=== PATIENT | female | born 1970 | race Hispanic/Latino ===

== ENCOUNTER 2016-12-01 21:06 | Emergency (ER) | payer OTHER ==
[2016-12-01 21:10] VITALS: RESP 18; TEMP 99.8
--- NOTE | 2016-12-01 21:33 | ED PDOC ---
Arrival/HPI - General Chief Complaint: Upper Extremity Problem/Injury Time Seen by Provider: 12/01/16 21:19 Historian: Patient, Family (daughter) - History of Present Illness Narrative History of Present Illness (Text): 12/01/16 21:29 This 46 yo female presents to this ED c/o intermittent left shoulder pain x 2 weeks. She also noted left hip pain x 1 day. Patient denies trauma, weakness, paresthesias, sob, cp, dizziness, or abnormal gait. Time/Duration: Other (see hpi) Quality: Aching Context: Home Past Medical History - Provider Review Nursing Documentation Reviewed: Yes - Hematological/Oncological Hx Blood Disorders: Yes Hx Anemia: Yes - Musculoskeletal/Rheumatological Hx Musculoskeletal Disorders: Yes Hx Fractures: Yes (LEFT LEG) - Psychiatric Hx Substance Use: No - Anesthesia Hx Anesthesia: No Hx Anesthesia Reactions: No Hx Malignant Hyperthermia: No Family/Social History - Physician Review Nursing Documentation Reviewed: Yes Family/Social History: Other (non-contributory) Smoking Status: Never Smoked Hx Alcohol Use: No Hx Substance Use: No Allergies/Home Meds Allergies/Adverse Reactions: Allergies No Known Allergies Allergy (Verified 12/01/16 21:09) Home Medications: Home Meds Medication Instructions Recorded Confirmed Multivitamin [Multivitamins] 1 tab PO DAILY 12/01/16 12/01/16 Review of Systems - Review of Systems Constitutional: Normal. absent: Fatigue, Weight Change, Fevers Eyes: Normal ENT: Normal Respiratory: Normal. absent: SOB, Cough Cardiovascular: Normal. absent: Chest Pain, Palpitations Gastrointestinal: Normal. absent: Abdominal Pain, Nausea, Vomiting Genitourinary Female: Normal. absent: Dysuria, Frequency, Hematuria Musculoskeletal: Other (see hpi) Skin: Normal Neurological: Normal. absent: Headache, Dizziness, Focal Weakness, Gait Changes , Speech Changes, Facial Droop, Disequilibrium, Seizure Endocrine: Normal Hemo/Lymphatic: Normal Psychiatric: Normal Physical Exam Vital Signs Temp Pulse Resp BP Pulse Ox 12/01/16 23:58 84 18 122/80 98 12/01/16 21:09 99.8 F H 111 H 18 129/84 100 Temperature: Afebrile Blood Pressure: Normal Pulse: Regular Respiratory Rate: Normal Appearance: Positive for: Well-Appearing, Non-Toxic, Comfortable Pain Distress: None Mental Status: Positive for: Alert and Oriented X 3 - Systems Exam Head: Present: Atraumatic, Normocephalic Pupils: Present: PERRL Extroacular Muscles: Present: EOMI Conjunctiva: Present: Normal Mouth: Present: Moist Mucous Membranes Neck: Present: Normal Range of Motion Respiratory/Chest: Present: Clear to Auscultation, Good Air Exchange. No: Respiratory Distress, Accessory Muscle Use, Wheezes, Retracting, Rhonchi, Tender to Palpation Cardiovascular: Present: Regular Rate and Rhythm, Normal S1, S2. No: Murmurs Abdomen: Present: Normal Bowel Sounds. No: Tenderness, Distention, Peritoneal Signs Back: Present: Normal Inspection. No: CVA Tenderness Upper Extremity: Present: Normal Inspection, Normal ROM, NORMAL PULSES, Neurovascularly Intact, Capillary Refill < 2s, Other ((+) mild left posterior shoulder tenderness. No erythema, swelling, deformity, or rash). No: Cyanosis , Edema Lower Extremity: Present: Normal Inspection, NORMAL PULSES, Normal ROM, Neurovascularly Intact, Capillary Refill < 2 s. No: Edema, CALF TENDERNESS, Cyanosis, Suresh's Sign, Tenderness, Swelling, Erythema, Temperature Abnormalties Neurological: Present: GCS=15, CN II-XII Intact, Speech Normal, Motor Func Grossly Intact, Normal Sensory Function, Normal Cerebellar Funct, Memory Normal Skin: Present: Warm, Dry, Normal Color. No: Rashes Psychiatric: Present: Alert, Oriented x 3, Normal Insight, Normal Concentration Medical Decision Making ED Course and Treatment: 12/01/16 23:52 Patient is resting comfortably, and is in no acute distress. Patient was instructed to follow up with PMD in 1-2 days for further evaluation. Pain has improved. Patient has a normal gait. Re-evaluation Time: 23:52 Reassessment Condition: Re-examined, Improved - Lab Interpretations Microbiology Results: Microbiology Results 12/01/16 22:20 Urine,Clean Catch Urine Culture - Final No Growth (<1,000 CFU/ML) Lab Results: Lab Results 12/01/16 21:40: Urine Color Yellow, Urine Appearance Clear, Urine pH 6.0, Ur Specific [place] 1.020, Urine Protein Negative, Urine Glucose (UA) Negative, Urine Ketones Negative, Urine Blood Trace-lysed H, Urine Nitrate Negative, Urine Bilirubin Negative, Urine Urobilinogen 0.2, Ur Leukocyte Esterase Trace H , Urine RBC 1 - 3, Urine WBC 2 - 5, Ur Epithelial Cells 4 - 5, Urine Bacteria Mod - RAD Interpretation Narrative RAD Interpretations (Text): 12/01/16 23:52 shoulder x-rays: no fx or dislocation hip pain: no Fracture or dislocation Radiology Orders: 12/01/16 21:32 Hip Left [HIP MIN 2V W/ PELVIS LT] [RAD] Stat SHOULDER LEFT [RAD] Stat - Medication Orders Current Medication Orders: Discontinued Medications Cephalexin Monohydrate (Keflex) 500 mg PO STAT STA PRN Reason: Protocol Stop: 12/01/16 22:28 Last Admin: 12/01/16 23:15 Dose: 500 mg Cyclobenzaprine HCl (Flexeril) 10 mg PO STAT STA Stop: 12/01/16 21:38 Last Admin: 12/01/16 21:53 Dose: 10 mg Ketorolac Tromethamine (Toradol) 30 mg IM STAT STA Stop: 12/01/16 21:32 Last Admin: 12/01/16 21:52 Dose: 30 mg Disposition/Present on Arrival - Present on Arrival Any Indicators Present on Arrival: No History of DVT/PE: No History of Uncontrolled Diabetes: No Urinary Catheter: No History of Decub. Ulcer: No History Surgical Site Infection Following: None - Disposition Have Diagnosis and Disposition been Completed?: Yes Diagnosis: Shoulder pain, Hip pain, Frequency of urination Disposition: HOME/ ROUTINE Disposition Time: 23:53 Patient Plan: Discharge Condition: GOOD Discharge Instructions (ExitCare): Shoulder Sprain (ED), Hip Pain (ED) Additional Instructions: Call private doctor for follow up visit in 1-2 days. Take medication as instructed. return to emergency if symptoms worsen. Muscle relaxer could make you feel drowsy, so avoid driving or operating machinery Prescriptions: Cephalexin [cephalexin] 500 mg PO BID #10 cap Famotidine [Pepcid] 40 mg PO DAILY #10 tablet Methocarbamol [Robaxin-750] 750 mg PO TID #21 tab Naproxen 500 mg PO BID PRN #14 tab PRN Reason: Pain, Severe (8-10) [facility], [Non-Staff] - Follow up with primary Vitor Garcia MD [Primary Care Provider] - Follow up with primary Forms: [employer] (Yakut)
[2016-12-01 22:10] LABS: URINE BILIRUBIN NEGATIVE (NEGATIVE); URINE BLOOD TRACE-LYSED (NEGATIVE); URINE GLUCOSE (UA) NEGATIVE (NEGATIVE); URINE KETONE NEGATIVE (NEGATIVE); URINE LEUKOCYTE ESTERASE TRACE Leu/uL (NEGATIVE); URINE PROTEIN NEGATIVE mg/dL (<30 mg/dL); URINE UROBILINOGEN 0.2 E.U./dL (<1 E.U./dL)
[2016-12-01 22:14] LABS: URINE APPEARANCE CLEAR (CLEAR); URINE COLOR YELLOW (YELLOW)
[2016-12-01 22:24] LABS: URINE BACTERIA MOD (NEG)
[2016-12-01 23:59] VITALS: BP 122/80; PULSE 84; O2SAT 98
--- NOTE | 2016-12-02 09:06 | RAD ---
PROCEDURE: Left Hip X-ray Radiographs. HISTORY: Pain COMPARISON: None. FINDINGS: BONES: Bone alignment and mineralization are normal. There is no acute fracture or bone destruction. JOINTS: The hip joint spaces are preserved. SOFT TISSUES: Normal. OTHER FINDINGS: Destruction is an IUD overlies the pelvis IMPRESSION: No acute fracture or dislocation.
--- NOTE | 2016-12-02 09:09 | RAD ---
PROCEDURE: Radiographs of the Left Shoulder HISTORY: Pain COMPARISON: No prior. FINDINGS: BONES: Bone alignment and mineralization are normal. There is no acute displaced fracture or bone destruction. JOINTS: Normal. Glenohumeral and acromioclavicular joints preserved. No osteoarthritis. SOFT TISSUES: Normal. OTHER FINDINGS: None. IMPRESSION: No acute fracture or dislocation.
== END 2016-12-02 00:02 | disposition home or self-care (01) ==
LOC: ED 21:06
DX: M25.512 Pain in left shoulder (principal); R35.0 Frequency of micturition; M25.552 Pain in left hip
CPT/HCPCS: 73030; 73502; 81001; 87086; 96372; 99284; J1885